=== PATIENT | male | born 1945 | race Caucasian/White ===

== ENCOUNTER 2017-12-19 14:26 | Inpatient (IN) | payer OTHER ==
[~2017-12-19] VITALS: Ht 167.6 cm; Wt 77.6 kg
[2017-12-19 15:19] LABS: CALCIUM 8.5 mg/dL (8.5-10.1); CARBON DIOXIDE 28.6 mmol/L (21-32); CHLORIDE SERUM 105 mmol/L (98-107); CREATININE SERUM 0.8 mg/dL (0.7-1.3); GLUCOSE SERUM 147 mg/dL (74-106); POTASSIUM SERUM 3.9 mmol/L (3.5-5.1); SODIUM SERUM 142 mmol/L (136-145)
[2017-12-19 15:25] LABS: ALBUMIN 3.5 g/dL (3.4-5.0); ALKALINE PHOSPHATASE 75 U/L (46-116); ALT/SGPT 39 U/L (16-63); AST/SGOT 23 U/L (15-37); BASOPHIL % 0.5 % (0-2); BILIRUBIN TOTAL 0.52 mg/dL (0.20-1.00); PLATELET COUNT 243 x10^3mcL (130-400); RED CELL DISTRIBUTION WIDTH 13.8 % (11.5-14.5); TOTAL PROTEIN, SERUM 7.4 g/dL (6.4-8.2)
[2017-12-19] MEDS ORDERED: MECLIZINE HYD12.5 MG PO (16:12)
[2017-12-19] MEDS ORDERED: METFORMIN HYDR500 M1 PO (16:12)
[2017-12-19] MEDS ORDERED: QVAR0.08 MG/Ac (16:12)
[2017-12-19] MEDS ORDERED: PROL (16:12)
[2017-12-19 16:33] LABS: MAGNESIUM 1.8 mg/dL (1.8-2.4); PHOSPHOROUS 3.6 mg/dL (2.5-4.9)
[2017-12-19 16:36] LABS: CHOLESTEROL/HDL RATIO 5.5
[2017-12-19 16:43] LABS: FREE THYROXINE INDEX 2.3 ug/dL (1.4-4.5); T4(THYROXINE) 6.3 ug/dL (4.7-13.3)
[2017-12-19 16:59] VITALS: BP 154/65
[2017-12-19 17:13] LABS: microscopic required? NO
[2017-12-19 17:33] LABS: UA SPECIFIC GRAVITY 1.015 (1.005-1.035); urine erythrocyte NEGATIVE (NEGATIVE)
[2017-12-19 17:40] LABS: AMPHETAMINE QUAL UR NONE DETECTED (NEG <=1000)
[2017-12-19 20:54] VITALS: BP 126/66
[2017-12-20 05:35] VITALS: BP 140/64
[2017-12-20 07:34] LABS: BASOPHIL % 0.4 % (0-2); PLATELET COUNT 225 x10^3mcL (130-400); RED CELL DISTRIBUTION WIDTH 13.8 % (11.5-14.5)
[2017-12-20 08:38] LABS: CALCIUM 8.8 mg/dL (8.5-10.1); CARBON DIOXIDE 25.8 mmol/L (21-32); CHLORIDE SERUM 102 mmol/L (98-107); CREATININE SERUM 0.8 mg/dL (0.7-1.3); GLUCOSE SERUM 121 mg/dL (74-106); MAGNESIUM 1.9 mg/dL (1.8-2.4); PHOSPHOROUS 4.1 mg/dL (2.5-4.9); POTASSIUM SERUM 4.3 mmol/L (3.5-5.1); SODIUM SERUM 139 mmol/L (136-145)
[2017-12-20 09:49] VITALS: BP 130/70
[2017-12-20 14:22] VITALS: BP 111/62
[2017-12-20 19:10] VITALS: BP 107/60
[2017-12-20 21:29] VITALS: BP 110/62
[2017-12-21 06:15] VITALS: BP 102/59
[2017-12-21 06:24] LABS: CALCIUM 8.9 mg/dL (8.5-10.1); CARBON DIOXIDE 24.5 mmol/L (21-32); CHLORIDE SERUM 106 mmol/L (98-107); CREATININE SERUM 0.9 mg/dL (0.7-1.3); GLUCOSE SERUM 123 mg/dL (74-106); MAGNESIUM 1.9 mg/dL (1.8-2.4); PHOSPHOROUS 4.4 mg/dL (2.5-4.9); POTASSIUM SERUM 4.5 mmol/L (3.5-5.1); SODIUM SERUM 140 mmol/L (136-145)
[2017-12-21 06:29] LABS: BASOPHIL % 0.2 % (0-2); PLATELET COUNT 246 x10^3mcL (130-400)
[2017-12-21 09:01] VITALS: BP 117/67
[2017-12-21 09:24] LABS: T3 TOTAL 0.91 ng/mL
[2017-12-21] MEDS ORDERED: ECO81 PO (10:36)
[2017-12-21] MEDS ORDERED: ATORVASTATIN CA40 M1 PO (10:36)
[2017-12-21 12:32] VITALS: BP 122/71
[2017-12-21 12:54] VITALS: BP 122/71
[2017-12-21] MEDS ORDERED: IMODIUM A-D2 M3 PO (12:56)
== END 2017-12-21 14:00 | disposition home or self-care (01) | DRG 205 ==
LOC: ED 14:26 → DU 15:37
PROVIDERS: Family Medicine Sports Medicine
DX: M94.0 Chondrocostal junction syndrome [Tietze] (principal); N17.0 Acute kidney failure with tubular necrosis; G90.9 Disorder of the autonomic nervous system, unspecified; E11.9 Type 2 diabetes mellitus without complications; I08.3 Combined rheumatic disorders of mitral, aortic and tricuspid valves; J45.909 Unspecified asthma, uncomplicated; M54.9 Dorsalgia, unspecified; G89.29 Other chronic pain; E78.2 Mixed hyperlipidemia; E66.9 Obesity, unspecified; Z68.33 Body mass index [BMI] 33.0-33.9, adult; Z87.891 Personal history of nicotine dependence; Z79.84 Long term (current) use of oral hypoglycemic drugs
CPT/HCPCS: 82962; 83880; 84439; A9500; J2785; J8597; Q0092

== ENCOUNTER 2018-11-17 23:08 | Emergency (ER) | payer OTHER ==
[~2018-11-17] VITALS: Ht 165.1 cm; Wt 84.8 kg
[~2018-11-17 23:08] MED LIST: ATORVASTATIN CA40 M1 PO; ECO81 PO; IMODIUM A-D2 M3 PO; MECLIZINE HYD12.5 MG PO; METFORMIN HYDR500 M1 PO; PROL; QVAR0.08 MG/Ac
[2018-11-18 00:16] LABS: BASOPHIL % 0.4 % (0-2); PLATELET COUNT 276 x10^3mcL (130-400); RED CELL DISTRIBUTION WIDTH 13.5 % (11.5-14.5)
[2018-11-18 00:22] LABS: CARBON DIOXIDE 26.9 mmol/L (21-32); CHLORIDE SERUM 106 mmol/L (98-107); CREATININE SERUM 0.9 mg/dL (0.7-1.3); GLUCOSE SERUM 126 mg/dL (74-106); POTASSIUM SERUM 4.1 mmol/L (3.5-5.1); SODIUM SERUM 143 mmol/L (136-145)
[2018-11-18 00:28] LABS: ALBUMIN 4.3 g/dL (3.4-5.0); ALKALINE PHOSPHATASE 84 U/L (46-116); ALT/SGPT 30 U/L (16-63); AST/SGOT 16 U/L (15-37); BILIRUBIN TOTAL 0.5 mg/dL (0.20-1.00); LIPASE 209 IU/L (73-393); TOTAL PROTEIN, SERUM 7.8 g/dL (6.4-8.2)
[2018-11-18 01:26] VITALS: BP 150/86
== END 2018-11-18 01:26 | disposition left against medical advice (07) ==
LOC: ED 23:08
PROVIDERS: Emergency Medicine
DX: R07.89 Other chest pain (principal); I10 Essential (primary) hypertension
CPT/HCPCS: 36415; Q0092